=== PATIENT | female | born 1950 | race Hispanic/Latino ===

== ENCOUNTER 2020-12-16 13:26 | Emergency (ER) | payer MEDICARE ==
[~2020-12-16] VITALS: Ht 160 cm; Wt 98.9 kg
[~2020-12-16 13:26] MED LIST: GLIPIZIDE ER10 MG PO; LOSARTAN-HCTZ1 EAC2 PO; METFORMIN PO; METOPROLOL PO; OMEPRAZOLE PO; PRAVASTATIN SOD20 MG PO; TRAMADOL-ACETAMI1 EA PO
[2020-12-16 14:56] LABS: BASOPHILS # (AUTO) 0.1 (0.0-0.1); BASOPHILS % 0.5 % (0.0-1.0); EOSINOPHILS # (AUTO) 0.1 (0.0-0.4); EOSINOPHILS % 0.6 % (0.0-6.0); HEMATOCRIT 35.3 % (34.2-44.1); HEMOGLOBIN 11.3 g/dL (12.0-16.0); LYMPHOCYTES # (AUTO) 1.7 (1.0-3.2); LYMPHOCYTES % 16.2 % (18.0-39.1); MEAN CORPUSCULAR HEMOGLOBIN 30.2 pg (28-32); MEAN CORPUSCULAR VOLUME 94.4 fL (81-99); MONOCYTES # (AUTO) 0.5 (0.2-0.8); MONOCYTES % 4.4 % (4.4-11.3); NEUTROPHILS # (AUTO) 8.2 (2.1-6.9); NEUTROPHILS % 77.7 % (38.7-80.0); PLATELET COUNT 385 x10e3/uL (140-360); RED BLOOD COUNT 3.74 x10e6/uL (3.6-5.1); RED CELL DISTRIBUTION WIDTH 14.5 % (11.7-14.4)
[2020-12-16 15:02] LABS: CLARITY,URINE CLEAR (CLEAR); COLOR,URINE YELLOW (YELLOW); KETONES,URINE TRACE (NEGATIVE); LEUKOCYTE ESTERASE ,URINE NEGATIVE (NEGATIVE); NITRITE,URINE NEGATIVE (NEGATIVE); PROTEIN,URINE DIPSTICK 1+ (NEGATIVE); URINE UROBILINOGEN 1 mg/dL (0.2 - 1)
[2020-12-16 15:16] LABS: BACTERIA,URINE RARE /HPF; EPITHELIAL CELLS,URINE MODERATE /LPF; RBC,URINE 0-5 /HPF (0-5)
[2020-12-16 15:16] LABS: ALBUMIN 2.7 g/dL (3.5-5.0); ALBUMIN/GLOBULIN RATIO 0.5 (0.8-2.0); ANION GAP 15.6 mmol/L (8-16); CALCIUM 12.2 mg/dL (8.4-10.2); CREATININE, SERUM 1.48 mg/dL (0.57-1.11); POTASSIUM 3.6 mmol/L (3.5-5.1)
[2020-12-16 15:17] LABS: AMYLASE 20 U/L (25-125); LIPASE 6 U/L (8-78)
[2020-12-16] MEDS ORDERED: PANTOPRAZOLE 40 MG 10ML VIAL IV STA (16:15)
[2020-12-16] MEDS ORDERED: SODIUM CHLORIDE 0.9% 1000ML 1,000 ML IV STA ×2 (16:15→19:33)
[2020-12-16 16:27] LABS: INR 0.76; PARTIAL THROMBOPLASTIN TIME 25.9 seconds (23.8-35.5); PROTHROMBIN TIME 11.2 seconds (11.9-14.5)
[2020-12-16] MEDS ORDERED: SODIUM CHLORIDE 0.9% 1000ML 1,000 ML IV SCH (17:45)
[2020-12-16 23:14] VITALS: BP 107/95
== END 2020-12-16 23:16 | disposition other institution (70) ==
LOC: ER 16:14
DX: R10.30 Lower abdominal pain, unspecified (principal); K86.9 Disease of pancreas, unspecified; K83.1 Obstruction of bile duct; E86.0 Dehydration; E11.65 Type 2 diabetes mellitus with hyperglycemia; N28.9 Disorder of kidney and ureter, unspecified; E83.52 Hypercalcemia; I10 Essential (primary) hypertension
CPT/HCPCS: 36415; 71045; 74176; 76705; 80053; 80329; 81001; 82140; 82150; 83690; 85025; 85610; 85730; 99284; C9113; J7030; U0002